=== PATIENT | male | born 1990 | race Caucasian/White ===

== ENCOUNTER 2022-09-20 10:41 | Emergency (ER) | payer MEDICAID ==
[~2022-09-20] VITALS: Ht 182.9 cm; Wt 71.8 kg
[2022-09-20] MEDS ORDERED: ACETAMINOPHEN 500 MG TABLET PO ONE (12:00)
[2022-09-20] MEDS ORDERED: KETOROLAC TROMETHAMINE 30 MG/ML VIAL IM ONE (12:00)
[2022-09-20] MEDS ORDERED: LIDOCAINE 5% TRANSDERMAL PATCH TD ONE (12:00)
[2022-09-20 12:23] LABS: COVID AG,FIA SOURCE NASAL SWAB
[2022-09-20 12:47] LABS: INFLUENZA TYPE A NEGATIVE FOR TYPE A (NEGATIVE); INFLUENZA TYPE B NEGATIVE FOR TYPE B (NEGATIVE)
[2022-09-20 13:53] VITALS: BP 140/80
== END 2022-09-20 13:43 | disposition home or self-care (01) ==
LOC: EMS 10:45
DX: B34.9 Viral infection, unspecified (principal); F12.90 Cannabis use, unspecified, uncomplicated; J45.909 Unspecified asthma, uncomplicated; Z20.822 Contact with and (suspected) exposure to COVID-19
CPT/HCPCS: 99285; 71045; 87426; 87804; 93005; 96372; J1885